=== PATIENT | female | born 1990 | race Two or more races ===

== ENCOUNTER 2022-01-12 23:31 | Emergency (ER) | payer MEDICAID, OTHER ==
[~2022-01-12] VITALS: Ht 175.3 cm; Wt 68.0 kg
--- NOTE | 2022-01-12 23:40 | NUR ---
PT PROVIDED WITH WARM BLANKET FOR COMFORT.
--- NOTE | 2022-01-12 23:48 | NUR ---
PATIENT AWAKE, ALERT AND OX4. BREATHING EVENLY. RESPONSIVE AND ABLE TO ANSWER ALL QUESTIONS. PO INTAKE TOLERATED WELL. AMBULATORY WITH STEADY GAITS. REPORTED HAVING ALCOHOL AND DENIED ANY DRUG USAGE. DENIED SI/HI. STATED FEELING WELL AND PROVIDED ME WITH HER BOT FRIEND'S PHONE NUMBER TO PICK HER UP. MD AT THE BED SIDE.
[2022-01-13] MEDS ORDERED: IV NS 0.9% 1,000 ML BAG IV ONE
--- NOTE | 2022-01-13 00:06 | NUR ---
Patient discharged to home in stable condition. Written and verbal after care instructions given. Patient verbalizes understanding of instruction.
[2022-01-13 00:07] VITALS: BP 121/70
== END 2022-01-13 00:07 | disposition home or self-care (01) ==
LOC: ER 23:33
DX: F10.129 Alcohol abuse with intoxication, unspecified (principal); Y90.9 Presence of alcohol in blood, level not specified